=== PATIENT | female | born 1975 | race Caucasian/White ===

== ENCOUNTER 2020-04-12 23:58 | Emergency (ER) | payer SELFPAY ==
--- NOTE | 2020-04-13 00:44 | EDM.PDOC ---
ED HPI GENERAL MEDICAL PROBLEM - General Chief Complaint: Lower Extremity Injury/Pain Stated Complaint: RIGHT FOOT TOE INJURY Time Seen by Provider: 04/13/20 00:09 Source of Information: Reports: Patient - History of Present Illness INITIAL COMMENTS - FREE TEXT/NARRATIVE: History of present illness: 45-year-old female presenting with right foot pain after accidentally kicking the wall. The patient reports she was having a dream and she kicked her foot into the wall, then awoke suddenly with pain in her foot. Pain located in the second to fourth digits of the foot. Patient was able to ambulate into the emergency department with the assistance of crutches. Pain is worsened with weightbearing. Review of systems: As per history of present illness and below otherwise all systems reviewed and n egative. Past medical history: As per history of present illness and as reviewed below otherwise noncontributory. Surgical history: As per history of present illness and as reviewed below otherwise noncontributory. Tubal ligation Social history: No reported history of drug or alcohol abuse. Denies tobacco use Family history: As per history of present illness and as reviewed below otherwise noncontributory. Physical exam: GEN: no acute distress, well appearing HEENT: Atraumatic, normocephalic, mucous membranes moist Neck: supple. Lungs: No respiratory distress. Heart: RRR Extremities: Tender to palpation over the second, third and fourth digits of the right foot. Intact but painful ROM. Mild erythema/bruising in this area. No open wound. Cap refill time intact. Neurovascularly intact. Neuro: Awake, alert, oriented. Neuro Exam nonfocal. Skin: warm, dry, no lesions Diagnostics: X-ray right foot Therapeutics: [] MDM: Impression: [] Plan: [] Definitive disposition and diagnosis as appropriate pending reevaluation and review of above. right 2nd toe Pain Score (Numeric/FACES): 6 - Related Data Allergies Allergy/AdvReac Type Severity Reaction Status Date / Time cephalexin [From Keflex] Allergy Itching Verified 04/13/20 00:11 Home Meds: Home Meds . [No Known Home Meds] 04/13/20 [History] Past Medical History HEENT History: Reports: None Cardiovascular History: Reports: None Respiratory History: Reports: None Gastrointestinal History: Reports: None Neurological History: Reports: None Psychiatric History: Reports: None Endocrine/Metabolic History: Reports: None Hematologic History: Reports: None Immunologic History: Reports: None Dermatologic History: Reports: None - Infectious Disease History Infectious Disease History: Reports: MRSA - Past Surgical History Female Surgical History: Reports: Tubal Ligation Other Musculoskeletal Surgeries/Procedures:: right fib fx Social & Family History - Family History Family Medical History: Noncontributory - Recreational Drug Use Recreational Drug Use: No Review of Systems - Review of Systems Review Of Systems: See Below (See HPI) ED EXAM, GENERAL - Physical Exam Exam: See Below (See HPI) Course - Vital Signs Text/Narrative:: No fracture seen on x-ray. Suspect contusion/foot sprain. Stable for discharge. Ice to the area. NSAIDs. Keep elevated. Last Recorded V/S: Last Vital Signs Temp 98.1 F 04/13/20 01:28 Pulse 77 04/13/20 01:28 Resp 18 04/13/20 01:28 BP 143/83 H 04/13/20 01:28 Pulse Ox 97 04/13/20 01:28 - Re-Assessments/Exams Free Text/Narrative Re-Assessment/Exam: 04/13/20 01:11 X-ray results showing no fractures were discussed with the patient. Departure - Departure Time of Disposition: 01:11 Disposition: Home, Self-Care 01 Clinical Impression: Contusion of right foot, initial encounter - Discharge Information Instructions: Crutch Use, Adult, [id number], How to Use Cold Therapy, [id number], Foot Contusion, [id number] Referrals: PCP,None [Primary Care Provider] - Forms: ED Department Discharge Additional Instructions: There is no sign of a fracture on your foot on x-ray. You may have a contusion which is a deep bruising of the area. Keep the foot elevated for the next few days as much as possible. You may apply ice to the area, ice wrapped in a towel and avoid ice directly contacting your skin. You may use crutches to keep weight off the foot as is comfortable. You may take Tylenol or ibuprofen for pain control. Ibuprofen 400 to 600 mg every 8 hours for the next 2 to 3 days will assist in pain and anti-inflammatory. Return to the ER if any worsening symptoms. If your pain continues for greater than 1 week, please follow-up with the orthopedic clinic listed below for repeat x-ray and evaluation. The following information is given to patients seen in the emergency department who are being discharged to home. This information is to outline your options for follow-up care. We provide all patients seen in our emergency department with a follow-up referral. The need for follow-up, as well as the timing and circumstances, are variable depending upon the specifics of your emergency department visit. If you don't have a primary care physician on staff, we will provide you with a referral. We always advise you to contact your personal physician following an emergency department visit to inform them of the circumstance of the visit and for follow-up with them and/or the need for any referrals to a consulting specialist. The emergency department will also refer you to a specialist when appropriate. This referral assures that you have the opportunity for follow-up care with a specialist. All of these measure are taken in an effort to provide you with optimal care, which includes your follow-up. Under all circumstances we always encourage you to contact your private physician who remains a resource for coordinating your care. When calling for follow-up care, please make the office aware that this follow-up is from your recent emergency room visit. If for any reason you are refused follow-up, please contact the [facility] Emergency Department at and asked to speak to the emergency department charge nurse. [facility] [address], [address] [place] [address] Sepsis Event Note (ED) - Evaluation Sepsis Screening Result: No Definite Risk - Focused Exam Vital Signs: Vital Signs Temp Pulse Resp BP Pulse Ox 04/13/20 01:28 98.1 F 77 18 143/83 H 97 04/13/20 00:11 96.8 F L 81 18 142/105 H 98
--- NOTE | 2020-04-13 01:06 | CR ---
Indication: Kicked a wall, 2nd toe pain Technique: Two views right foot Comparison: None Findings: Bones: Alignment is normal. No fractures or bone lesions. There is an inferior calcaneal enthesophyte. Joint spaces: Unremarkable. Soft tissues: Unremarkable. Impression: Negative. Dictated by Sonal Horton MD @ Apr 13 2020 1:02AM Signed by Dr. Sonal Horton @ Apr 13 2020 1:03AM
== END 2020-04-13 01:29 | disposition home or self-care (01) ==
LOC: MW.ED 23:58
DX: S90.31XA Contusion of right foot, initial encounter (principal); Z88.1 Allergy status to other antibiotic agents; W22.01XA Walked into wall, initial encounter
CPT/HCPCS: 73620-26-RT; 73620-RT; 99282; 99283-25